=== PATIENT | female | born 2000 | race Caucasian/White ===

== ENCOUNTER 2020-04-30 00:29 | Emergency (ER) | payer OTHER ==
[2020-04-30 00:44] VITALS: BP 125/71; PULSE 100; RESP 18; TEMP 98.2
[2020-04-30] MEDS ORDERED: ONDANSETRON 4 MG ODT STARTER PACK 2 TAB BTL PO STA (00:52)
--- NOTE | 2020-04-30 00:55 | ED ---
General Adult HPI - General Chief complaint: Recheck/Abnormal Lab/Rx Stated complaint: nausea, covid exposure Time Seen by Provider: 04/30/20 00:43 Source: patient Mode of arrival: ambulatory Limitations: no limitations - History of Present Illness Initial comments: Asians 19-year-old female presents the ER today requesting COVID testing. Patient reports that a small gathering of friends and family less than 2 weeks ago, one guest from the gathering has subsequently tested positive for COVID. Patient reports she's had some nausea and that food has an altered taste to her for the past few days. She was notified earlier today of the family friend testing positive and prompted her and her father come to the ER for evaluation. - Related Data Allergies Allergy/AdvReac Type Severity Reaction Status Date / Time No Known Allergies Allergy Verified 04/30/20 00:44 Review of Systems ROS Statement: Those systems with pertinent positive or pertinent negative responses have been documented in the HPI. ROS Other: All systems not noted in ROS Statement are negative. Past Medical History Past Medical History: No Reported History History of Any Multi-Drug Resistant Organisms: None Reported Past Surgical History: No Surgical Hx Reported Past Psychological History: No Psychological Hx Reported Smoking Status: Never smoker Past Alcohol Use History: None Reported Past Drug Use History: None Reported General Exam - General Exam Comments Initial Comments: Physical Exam GENERAL: Patient is well-developed and well-nourished. Patient is nontoxic and well-hydrated and is in no distress. HENT: Normocephalic, Atraumatic. EYES: PERRL, EOMI PULMONARY: Unlabored respirations. No respiratory distress CARDIOVASCULAR: no tachycardia ABDOMEN: Non-distended SKIN: No rashes or bruising : Deferred NEUROLOGIC: Alert and oriented Normal speech Normal gait MUSCULOSKELETAL: Moving all extremities with no apparent injury PSYCHIATRIC: No SI/HI Limitations: no limitations Course Vital Signs 04/30/20 00:40 Temperature 98.2 F Pulse Rate 100 Respiratory 18 Rate Blood Pressure 125/71 O2 Sat by Pulse 100 Oximetry Medical Decision Making - Medical Decision Making Patient was seen and evaluated history is obtained from the patient and father bedside who is also being tested Family has a known exposure to COVID positive patient, patient has nausea and altered taste that she still has some sense of taste and smell Hemodynamically stable no respiratory symptoms no shortness of breath Patient will be swabbed provided with a work note discharge home Close return parameters were discussed Disposition Clinical Impression: Exposure to COVID-19 virus Disposition: HOME SELF-CARE Condition: Stable Additional Instructions: Coronavirus (COVID-19) Discharge Instructions You were diagnosed with the novel Coronavirus, known as COVID-19. It is a viral illness that can cause fever, cough and trouble breathing. Some people may have chills, muscle aches, runny nose, sneezing, sore throat, upset stomach or loose stool. When leaving [facility], you will be asked to wear a mask. You should wear it until you get home. When do I need to call the doctor? Call your doctor if your breathing is getting worse (harder or faster than before or you feel like you are getting less air). Some people start to feel worse in the second week of their illness, if you start to feel worse at any time in your illness, please call your doctor, who will tell you where to go to be seen. If you can, put on a facemask before leaving home or before you enter the clinic or hospital. Get medical attention right away if you develop emergency warning signs of COVID-19 such as: trouble breathing, chest pain or pressure that does not go away, new confusion or not able to wake up, bluish lips or face. Precautions at home The virus is spread easily through tiny droplets when you cough or sneeze. You should take these steps to help prevent the disease from spreading to people in your home and community 1. Self-isolate at home As advised by the Centers for Disease Control and Prevention (CDC), we ask you to stay in your home and limit contact with others to avoid spreading this virus. Stay home except to go to the doctor Do not go to work, school, or public areas, except for getting medical care. Avoid using public transportation (such as buses), ride-sharing, or taxis. If you have an upcoming doctor appointment, call the office and tell them that you have COVID-19. Separate yourself from other people and animals in your home. Avoid touching other people, including handshaking. As much as you can, stay in a specific room and away from other people in your home. You should also use a separate bathroom, if available. Avoid sharing personal household items. You should not share dishes, drinking glasses, cups, eating utensils, towels, toothpaste, or bedding with other people or pets in your home. After using these items, they should be washed well with soap and water. Do not handle pets or other animals while sick. 2. Clean and disinfect Clean all high-touch surfaces every day. High-touch surfaces include counters, tabletops, doorknobs, bathroom fixtures, toilets, phones, keyboards, tablets, and bedside tables. Clean any surfaces that may have blood, stool, or body fluids on them. Use a household cleaning spray or wipe, according to the label instructions. Labels contain instructions for safe and effective use of the cleaning product including precautions you should take when applying the product, such as wearing gloves and making sure you have good air flow in the room during use of the product. Wash laundry. Remove and wash clothes or bedding that have blood, stool, or body fluids on th em and then wash your hands right away 3. Help stop the spread Clean your hands often. Wash your hands with soap and water for at least 20 seconds. OR Use an alcohol-based hand diagram clerk that contains at least 60% alcohol, covering all surfaces of your hands and rubbing them together until they feel dry. Wash your hands after blowing your nose, coughing, or sneezing; going to the bathroom, and before eating or preparing food. Avoid touching your eyes, nose, and mouth with unwashed hands. Cover your coughs and sneezes. Cover your mouth and nose with a tissue when you cough or sneeze. Throw used tissues in a lined trash can; clean your hands right away. Wear a facemask You should wear a facemask when you are around other people (e.g., sharing a room or vehicle) or pets and before you enter a healthcare providers office. 4. Notify your close contacts People that you live with should self-isolate for 14 days AFTER your self- isolation period ends. Other close contacts such as caretakers and intimate partners should self- isolate for 14 days AFTER your last contact with them. Your close contacts should self-monitor for symptoms by checking their temperature twice a day and watching for fever, cough, or shortness of breath. They should contact their doctor if they develop symptoms of COVID-19. They should also clean hands often and avoid touching eyes, nose, and mouth with unwashed hands. They should wear a mask if they have to be in the same room as you if you are not able to wear one. When can I stop precautions at home? You can stop isolating yourself when both of these things have happened: You have had no fever for at least 72 hours (that is three full days of no fever without the use of medicine that reduces fevers) AND Other symptoms have improved (for example, when your cough or shortness of breath have improved) AND At least 10 days have passed since your symptoms first started. Some patients that will need ongoing medical care may also need to have 2 negative tests before precautions are stopped. Your doctor will let you know if additional testing is needed. Manage your stress and anxiety Being ill can be stressful or cause anxiety. Remember that everyone reacts differently to stressful situations. Being ill with COVID-19 might be especially stressful because it is a new disease and there is a lot of news coverage. Take breaks from watching, reading, or listening to news stories, including social media. People with preexisting mental conditions should continue their treatment and be aware of new or worsening symptoms. If you, or someone you care about, are feeling overwhelmed with emotions like sadness, depression, or anxiety, call the [facility] Abuse [facility] Services [facility]rations ([facility]) Disaster Distress Helpline: [place] [address]. (TTY ) Is patient prescribed a controlled substance at d/c from ED?: No Referrals: None,Stated [Primary Care Provider] - 1-2 days
== END 2020-04-30 01:10 | disposition home or self-care (01) ==
LOC: EC 00:29
DX: Z03.818 Encounter for observation for suspected exposure to other biological agents ruled out (principal); R11.0 Nausea; R43.9 Unspecified disturbances of smell and taste
CPT/HCPCS: 99283; U0003; S0119

== ENCOUNTER → 2023-06-30 | Outpatient (CLI) | payer OTHER ==
--- NOTE | 2023-07-02 08:43 | MR ---
EXAMINATION TYPE: MR knee LT wo con DATE OF EXAM: 06/30/2023 COMPARISON: None HISTORY: Left knee pain TECHNIQUE: Multiplanar, multisequence imaging of the left knee is performed without IV contrast. 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 Anterior horn is in tact. LATERAL MENISCUS: Anterior and posterior horns are intact without tear. CRUCIATE LIGAMENTS: There is a ruptured ACL. PCL is intact. COLLATERAL LIGAMENTS: The medial collateral ligament and lateral collateral ligament complex are inta ct and unremarkable. EXTENSOR MECHANISM: Visualized quadriceps and patellar tendons are intact. EFFUSION: Patellar joint effusion noted. POPLITEAL CYST: No popliteal/lamar cyst. TRICOMPARTMENT SPACES: Intact CARTILAGE: Intact BONE MARROW SIGNAL: There is bone marrow contusion noted to involve the anterior aspect of the medial femoral condyle without fracture noted. Mild bone marrow edema noted to involve the tibial plateau b oth laterally and within the intercondylar region. OTHER: No additional significant abnormality is appreciated. IMPRESSION: 1. Ruptured ACL. 2. Bone marrow contusions as noted. 3. Small joint effusion.
== END | disposition home or self-care (01) ==
LOC: RADMRIMAIN 17:21
PROVIDERS: ATTEND Orthopaedic Surgery
DX: M23.612 Other spontaneous disruption of anterior cruciate ligament of left knee (principal); M25.462 Effusion, left knee; M25.862 Other specified joint disorders, left knee